=== PATIENT | female | born 1930 | race Caucasian/White ===

== ENCOUNTER 2016-05-12 18:05 | Emergency (ER) | payer MEDICARE, OTHER ==
[2016-05-12] MEDS ORDERED: Acyclovir* 200 MG CAP PO ONE (21:21)
[2016-05-12 21:41] VITALS: BP 134/78
--- NOTE | 2016-06-03 08:43 | UC ---
Demetris Granda Janilya, scribed for Milly Jarrell DO on 05/12/16 at 2059 . Abdominal Pain Female HPI - HPI Summary HPI Summary: An 86 y/o female came in to [facility] presenting w/ a gradual onset of intermittent left side abd pain lasting 10-15 minutes. Pain radiates to left side of her back. The pain is stabbing feeling like "a knife is slicing me". Pt states that the back pain feels like the pain when she had shingles. Icy hot and rubbing did not help the pain. She also took Tylenol 1000 mg without any relief. Pt additionally reports dizziness last week. Pt denies abd pain, CP, SOB, rashes, VARGAS, n/v/d, urinary Sx. PMHx shingles. - History of Current Complaint Chief Complaint: UCAbdominalPain Stated Complaint: PAIN BACK Time Seen by Provider: 05/12/16 20:19 Hx Obtained From: Patient Onset/Duration: Gradual Onset, Lasting Days, Still Present Timing: Intermittent Episodes Lasting: Severity Initially: Moderate Severity Currently: Moderate Location: Discrete At: LUQ Radiates: Yes Radiates to: Back - left side Character: Sharp, Other - stabbing Aggravating Factor(s): Nothing Alleviating Factor(s): Nothing Associated Signs and Symptoms: Positive: Dizzy - a week ago, Back Pain - left sided. Negative: Fever, Cough, Chest Pain, Urinary Symptoms, Nausea, Vomiting, Diarrhea Allergies/Adverse Reactions: Allergies Allergy/AdvReac Type Severity Reaction Status Date / Time No Known Allergies Allergy Verified 05/12/16 19:43 Home Medications: Home Medications Acetaminophen 1,000 mg PO PRN 05/12/16 [History] Seaweed* 05/12/16 [History] PMH/Surg Hx/FS Hx/Imm Hx Previously Healthy: Yes Endocrine History Of: Denies: Diabetes, Thyroid Disease Cardiovascular History Of: Reports: Hypertension Denies: Cardiac Disorders, Myocardial Infarction Respiratory History Of: Denies: COPD, Asthma GI/ History Of: Denies: Ulcer - Surgical History Surgical History: Yes Surgery Procedure, Year, and Place: appy as a child - Family History Known Family History: Positive: Cardiac Disease, Hypertension Family History: CVA - Social History Occupation: Retired Lives: With Family Alcohol Use: Occasionally Alcohol Amount: wine Substance Use Type: None Smoking Status (MU): Former Smoker Type: Cigarettes, Smokeless Tobacco Have You Smoked in the Last Year: No - Immunization History Most Recent Influenza Vaccination: never Most Recent Tetanus Shot: up to date Most Recent Pneumonia Vaccination: never Review of Systems Constitutional: Negative Skin: Negative Eyes: Negative ENT: Negative Respiratory: Negative Cardiovascular: Negative Gastrointestinal: Abdominal Pain Genitourinary: Negative Motor: Negative Neurovascular: Negative Musculoskeletal: Myalgia - back pain Neurological: Other - dizziness that occurred a week ago Psychological: Negative All Other Systems Reviewed And Are Negative: Yes Physical Exam Triage Information Reviewed: Yes Appearance: Well-Appearing, No Pain Distress, Well-Nourished Vital Signs: Initial Vital Signs Temp 97.5 F 05/12/16 19:37 Pulse 91 05/12/16 19:37 Resp 16 05/12/16 19:37 BP 144/70 05/12/16 19:37 Pulse Ox 98 05/12/16 19:37 Vital Signs Reviewed: Yes Eyes: Positive: Conjunctiva Clear. Negative: Discharge ENT: Positive: Hearing grossly normal. Negative: Muffled/hoarse voice Neck exam: Normal Neck: Positive: Supple Respiratory: Positive: Lungs clear, Normal breath sounds, No respiratory distress, No accessory muscle use Cardiovascular: Positive: RRR, No Murmur Abdomen Description: Positive: Other: - Tenderness on flank with a mild papular rash; do not cross the midline.. Negative: Nontender, Soft Musculoskeletal Exam: Normal Neurological: Positive: Alert, Muscle Tone Normal Psychological Exam: Normal Psychological: Positive: Age Appropriate Behavior Skin Exam: Normal Skin: Positive: Other - warm, dry, normal color. area of skin wherein pt is experiencing pain is in a unilateral dermatomal distribution where she has previously had shingles. there are some scattered red papules in that stripe near the spine. pt sister says that the papules are not usually there. Abd Pain Female Course/Dx - Differential Dx/Diagnosis Differential Diagnosis: Urinary Tract Infection, Other - back strain, shingles Provider Diagnoses: shingles Discharge - Discharge Plan Condition: Stable Disposition: HOME Prescriptions: ValACYclovir (*) [Valtrex (*)] 1 gm PO TID #20 tab traMADol TAB* [Ultram*] 50 mg PO Q8H PRN #14 tab MDD 3 TABS PRN Reason: Pain Patient Education Materials: Shingles (ED) Referrals: Jef Lucas MD [Primary Care Provider] - (follow up in 3-5 days ) Additional Instructions: VALTREX: VALTREX is used to treat infections caused by the Herpes family of viruses. It's available as capsules or ointment. VALTREX is most effective if started at the first sign of the viral outbreak. It can decrease the severity and duration of symptoms. However, it doesn't eliminate the virus from the body completely. If you're prone to repeated outbreaks of herpes, you'll continue to have attacks. Take the pills for the full recommended course. Occasionally, mild nausea or headaches may occur. Call the doctor if you develop wheezing, itching, rash, shortness of breath , or lightheadedness. ULTRAM (tramadol hydrochloride): Ultram is an excellent drug for pain relief. It is not a narcotic, but it works in a similar way. Ultram can take up to two hours for full effect. Although not addicting, Ultram is best avoided in patients with a history of drug abuse. Ultram should not be used with alcohol, sleeping pills, or narcotics. If you're prone to seizures, Ultram can make you more likely to have a seizure. Ultram can be hazardous when combined with MAO-inhibitor antidepressants (such as Nardil or Parnate). Be sure your doctor is aware of all medicines you are taking. Persons with severe liver or kidney disease should increase the time between doses of Ultram. Discuss this with your doctor if you're uncertain. Side effects of Ultram can include dizziness, nausea, constipation, sleepiness, and itching. (These side effects are also seen with narcotic pain medicines.) Please call your doctor if you have other disturbing effects. THERE IS SOME EVIDENCE OF URINARY TRACK INFECTION IN YOUR URINE. HOWEVER, DIAGNOSIS OF SHINGLES IS MORE CONSISTENT WITH YOUR HISTORY AND PHYSICAL EXAM. SO, WE ARE SENDING IN THE URINE FOR CULTURE. IF IT REVEALS AN INFECTION, WE WILL CALL YOU AND START YOU ON AN ANTIBIOTIC. IF YOU DEVELOP ANY SYMPTOMS SUCH PAIN WITH URINATION, CHANGES IN COLOR, ODOR OR FREQUENCY, YOU SHOULD BE RE- EVALUATED. IF YOU DEVELOP AND FEVER, NAUSEA, VOMITING, ABDOMINAL PAIN, UNSTEADINESS ON YOUR FEET OR CONFUSION, YOU SHOULD GO TO THE ED IMMEDIATELY. NICE SEEING YOU AGAIN. The documentation as recorded by the Demetris aldridge Janilya accurately reflects the service I personally performed and the decisions made by me, Milly Jarrell DO.
== END 2016-05-12 21:36 | disposition home or self-care (01) ==
LOC: UCEAST 18:05
DX: B02.9 Zoster without complications (principal); Z87.891 Personal history of nicotine dependence
CPT/HCPCS: 81002; 87086; 99212; A9270-GY; G0463

== ENCOUNTER 2016-12-14 09:34 | Emergency (ER) | payer MEDICARE, OTHER ==
[2016-12-14 10:22] VITALS: BP 102/58
--- NOTE | 2016-12-14 10:29 | UC ---
Respiratory Complaint HPI - HPI Summary HPI Summary: Patient presents with a past medical history or HTN. She presents today with 3 day onset complaints of fatigue, malaise, and no energy. He sister states she was in bed all day yesterday. She complains of sore throat, hoarse voice, chest congestion and cough. She denies any sputum production, chest pain, nausea, vomiting, or diarrhea. Denies any recent travel, ill contacts, or recent travel , joint pain or rashes. - History of Current Complaint Hx Obtained From: Patient ?: No Onset/Duration: Gradual Onset, Lasting Days Severity Initially: Mild Severity Currently: Mild Character: Cough: Nonproductive Aggravating Factors: Nothing Alleviating Factors: Nothing Associated Signs And Symptoms: Positive: URI, Hoarseness - Risk Factors Pulmonary Embolism Risk Factors: Negative Cardiac Risk Factors: Negative Pseudomonas Risk Factors: Negative Tuberculosis Risk Factors: Negative <Kaya Walter - Last Filed: 12/14/16 10:23> <Renate Grier - Last Filed: 12/14/16 10:48> - History of Current Complaint Chief Complaint: UCGeneralIllness Stated Complaint: URI Time Seen by Provider: 12/14/16 10:09 - Allergies/Home Medications Allergies/Adverse Reactions: Allergies Allergy/AdvReac Type Severity Reaction Status Date / Time No Known Allergies Allergy Verified 12/14/16 09:42 Home Medications: Home Medications Metoprolol Tartrate [Lopressor] 1 tab PO BEDTIME 12/14/16 [History Confirmed ] Metoprolol Tartrate [Lopressor] 1.5 tab PO DAILY 12/14/16 [History Confirmed ] PMH/Surg Hx/FS Hx/Imm Hx Previously Healthy: Yes Cardiovascular History: Hypertension - Surgical History Surgical History: Yes Surgery Procedure, Year, and Place: appy as a child - Family History Known Family History: Positive: Cardiac Disease, Hypertension Family History: CVA - Social History Occupation: Retired Lives: Alone Alcohol Use: Weekly Alcohol Amount: 1 beer/wine weekly Substance Use Type: None Smoking Status (MU): Current Some Day Smoker Type: Smokeless Tobacco Have You Smoked in the Last Year: No - Immunization History Most Recent Influenza Vaccination: never Most Recent Tetanus Shot: up to date Most Recent Pneumonia Vaccination: never <Kaya Walter - Last Filed: 12/14/16 10:23> Review of Systems Constitutional: Fatigue Skin: Negative Eyes: Negative ENT: Sore Throat Respiratory: Cough All Other Systems Reviewed And Are Negative: Yes <Kaya Walter - Last Filed: 12/14/16 10:23> Physical Exam Triage Information Reviewed: Yes Appearance: Ill-Appearing Vital Signs: Initial Vital Signs Temp 97.6 F 12/14/16 09:35 Pulse 54 12/14/16 09:35 Resp 18 12/14/16 09:35 BP 102/58 12/14/16 09:35 Pulse Ox 98 12/14/16 09:35 Vital Signs Reviewed: Yes Eye Exam: Normal ENT: Positive: Pharyngeal erythema Neck: Positive: Supple Respiratory: Positive: Rhonchi Cardiovascular Exam: Normal Abdominal Exam: Normal Skin Exam: Normal <Kaya Walter - Last Filed: 12/14/16 10:23> Vital Signs: Initial Vital Signs Temp 97.6 F 12/14/16 09:35 Pulse 54 12/14/16 09:35 Resp 18 12/14/16 09:35 BP 102/58 12/14/16 09:35 Pulse Ox 98 12/14/16 09:35 <Renate Grier - Last Filed: 12/14/16 10:48> UC Diagnostic Evaluation - Laboratory O2 Sat by Pulse Oximetry: 98 <Kaya Walter - Last Filed: 12/14/16 10:23> Respiratory Course/Dx - Course Course Of Treatment: Patient presents with complaints of sore throat, chest congestion and generalized fatigue, normal vital signs, and was afebrile. Here her physical exam is consistent with URI, and or viral syndrome. Given her advanced age, and co-mobidities she warrent treatment with antibiotics. [facility] [place] [facility] and I encourged her to have todays findings re-evaluated, and if for any reason her symtpoms worsen, persist she was encouraged to either return to the walk-in or go to the ER. At the time of discharge she was stable and in or apparent distress. I recommend she also increase fluids, and rest. - Differential Dx/Diagnosis Differential Diagnosis/HQI/PQRI: Bronchitis, Laryngitis Provider Diagnoses: URI. Bronchitis. Viral Syndrome. Laryngitis <Kaya Walter - Last Filed: 12/14/16 10:23> Discharge <Kaya Walter - Last Filed: 12/14/16 10:23> <Renate Grier - Last Filed: 12/14/16 10:48> - Discharge Plan Condition: Stable Disposition: HOME Prescriptions: Azithromycin TAB* [Zithromax TAB (Z-DUONG) 250 mg #6 tabs] 250 mg PO DAILY #6 tab Patient Education Materials: Upper Respiratory Infection (ED) Referrals: Jef Lucas MD [Primary Care Provider] - Attestation Statement User Type: Provider - I was available for consult. This patient was seen by the [facility]. The patient was not presented to, seen by, or examined by me. -Yasmine <Renate Grier - Last Filed: 12/14/16 10:48>
== END 2016-12-14 10:34 | disposition home or self-care (01) ==
LOC: UCEAST 09:34
DX: J06.9 Acute upper respiratory infection, unspecified (principal); I10 Essential (primary) hypertension; J40 Bronchitis, not specified as acute or chronic; B34.9 Viral infection, unspecified; J04.0 Acute laryngitis
CPT/HCPCS: 99212; G0463

== ENCOUNTER 2017-03-19 11:44 | Emergency (ER) | payer MEDICARE, OTHER ==
[2017-03-19 12:26] VITALS: BP 101/55
--- NOTE | 2017-03-19 13:05 | UC ---
Respiratory Complaint HPI - HPI Summary HPI Summary: 86 yo female with productive cough and malaise/myalgias x 2 days no cp or sob - History of Current Complaint Chief Complaint: UCRespiratory Stated Complaint: COUGH Time Seen by Provider: 03/19/17 13:00 Hx Obtained From: Patient Onset/Duration: Gradual Onset, Lasting Days Timing: Constant Severity Initially: Moderate Severity Currently: Mild Pain Intensity: 0 Pain Scale Used: 0-10 Numeric Character: Cough: Productive - Allergies/Home Medications Allergies/Adverse Reactions: Allergies Allergy/AdvReac Type Severity Reaction Status Date / Time No Known Allergies Allergy Verified 03/19/17 12:20 PMH/Surg Hx/FS Hx/Imm Hx Previously Healthy: Yes Cardiovascular History: Hypertension Respiratory History: Bronchitis - Surgical History Surgical History: Yes Surgery Procedure, Year, and Place: appy as a child - Family History Known Family History: Positive: Cardiac Disease, Hypertension Family History: CVA - Social History Alcohol Use: Occasionally Alcohol Amount: wine Substance Use Type: None Smoking Status (MU): Former Smoker Type: Cigarettes, Smokeless Tobacco Have You Smoked in the Last Year: No - Immunization History Most Recent Influenza Vaccination: never Most Recent Tetanus Shot: up to date Most Recent Pneumonia Vaccination: never Review of Systems Constitutional: Negative Skin: Negative Eyes: Negative ENT: Negative Respiratory: Cough Cardiovascular: Negative Gastrointestinal: Negative Genitourinary: Negative Motor: Negative Neurovascular: Negative Musculoskeletal: Negative Neurological: Negative Psychological: Negative Is Patient Immunocompromised?: No All Other Systems Reviewed And Are Negative: Yes Physical Exam Triage Information Reviewed: Yes Appearance: Well-Appearing, No Pain Distress, Well-Nourished Vital Signs: Initial Vital Signs Temp 98.6 F 03/19/17 12:22 Pulse 75 03/19/17 12:22 Resp 16 03/19/17 12:22 BP 101/55 03/19/17 12:22 Pulse Ox 99 03/19/17 12:22 Eyes: Positive: Conjunctiva Clear ENT: Positive: Uvula midline. Negative: Nasal congestion, Nasal drainage, Dental tenderness, Sinus tenderness Neck: Positive: Supple, Nontender, No Lymphadenopathy Respiratory: Positive: Normal breath sounds, No respiratory distress, No accessory muscle use, Rhonchi Cardiovascular: Positive: RRR, No Murmur Musculoskeletal: Positive: ROM Intact, No Edema Neurological: Positive: Alert Psychological Exam: Normal Skin Exam: Normal UC Diagnostic Evaluation - Laboratory O2 Sat by Pulse Oximetry: 99 - normal/not hypoxic - Radiology Xray Interpretation: No Acute Changes Radiology Interpretation Completed By: Radiologist - FINDINGS SUGGESTIVE OF YOU[employer] SERVICES SPECIALIST Respiratory Course/Dx - Differential Dx/Diagnosis Provider Diagnoses: acute bronchitis Discharge - Discharge Plan Condition: Stable Disposition: HOME Prescriptions: Amoxicillin PO (*) [Amoxicillin 875 MG (*)] 875 mg PO BID #14 tab Patient Education Materials: Acute Bronchitis (ED) Referrals: No Primary Care Phys,NOPCP [Primary Care Provider] - Additional Instructions: recheck in 3-5 days if not better recheck sooner for new or worsening symptoms rest fluids tylenol
--- NOTE | 2017-03-19 13:25 | RAD ---
INDICATION: Cough and rales. COMPARISON: Comparison is made with prior chest x-ray study from June 07, 2015. TECHNIQUE: Dual-energy PA and lateral views of the chest were obtained. FINDINGS: The heart is within normal limits in size. Mediastinal and hilar contours appear within normal limits. The lungs are clear. There is flattening of the diaphragms suggestive of chronic obstructive pulmonary disease. No pleural effusion is seen. IMPRESSION: FINDINGS SUGGESTIVE OF COPD, NO EVIDENCE FOR ACUTE FINDING.
== END 2017-03-19 13:41 | disposition home or self-care (01) ==
LOC: UCEAST 11:44
DX: J20.9 Acute bronchitis, unspecified (principal); Z87.891 Personal history of nicotine dependence; Z72.89 Other problems related to lifestyle
CPT/HCPCS: 71020; 99212; G0463

== ENCOUNTER 2017-06-16 09:01 | Emergency (ER) | payer MEDICARE, OTHER ==
[2017-06-16 09:15] VITALS: BP 127/66
--- NOTE | 2017-06-16 09:43 | UC ---
General HPI - HPI Summary HPI Summary: This 87-year-old lady comes to the urgent care this morning with her sister. She was awake all night after checking her blood pressure in the evening and found it to be in the 140s over 80s. She denies chest pain shortness of breath. She denies neurological symptoms she does admit to being anxious. She' s seeks medical care at the [facility] . She's compliant with her medication regimen - History of Current Complaint Chief Complaint: UCGeneralIllness Stated Complaint: ELEVATED BLOOD PRESSURE Time Seen by Provider: 06/16/17 09:21 Hx Obtained From: Patient Current Severity: None Pain Intensity: 0 - Allergy/Home Medications Allergies/Adverse Reactions: Allergies Allergy/AdvReac Type Severity Reaction Status Date / Time No Known Allergies Allergy Verified 06/16/17 09:15 PMH/Surg Hx/FS Hx/Imm Hx Previously Healthy: No Cardiovascular History: Hypertension - Surgical History Surgical History: Yes Surgery Procedure, Year, and Place: appy as a child - Family History Known Family History: Positive: Cardiac Disease, Hypertension Family History: CVA - Social History Occupation: Retired Lives: With Family Alcohol Use: Occasionally Alcohol Amount: wine Substance Use Type: None Smoking Status (MU): Former Smoker Type: Cigarettes, Smokeless Tobacco Have You Smoked in the Last Year: No - Immunization History Most Recent Influenza Vaccination: never Most Recent Tetanus Shot: up to date Most Recent Pneumonia Vaccination: never Review of Systems Constitutional: Negative Skin: Negative Eyes: Negative ENT: Negative Respiratory: Negative Cardiovascular: Negative Gastrointestinal: Negative Genitourinary: Negative Motor: Negative Neurovascular: Negative Musculoskeletal: Negative Neurological: Negative Psychological: Other - Patient was concerned about her blood pressure being elevated Is Patient Immunocompromised?: No All Other Systems Reviewed And Are Negative: Yes Physical Exam Triage Information Reviewed: Yes Appearance: Well-Appearing, No Pain Distress, Well-Nourished Vital Signs: Initial Vital Signs Temp 97.9 F 06/16/17 09:10 Pulse 74 06/16/17 09:10 Resp 18 06/16/17 09:10 BP 127/66 06/16/17 09:10 Pulse Ox 99 06/16/17 09:10 Vital Signs Reviewed: Yes Eye Exam: Normal Eyes: Positive: Conjunctiva Clear ENT Exam: Normal ENT: Positive: Normal ENT inspection, Hearing grossly normal, Uvula midline. Negative: TMs normal, TM bulging, Trismus, Muffled voice, Hoarse voice, Sinus tenderness Dental Exam: Normal Neck exam: Normal Neck: Positive: Supple, Nontender Respiratory Exam: Normal Respiratory: Positive: Chest non-tender, Lungs clear, Normal breath sounds, No respiratory distress, No accessory muscle use Cardiovascular Exam: Normal Cardiovascular: Positive: RRR, No Murmur, Pulses Normal, Brisk Capillary Refill Musculoskeletal Exam: Normal Musculoskeletal: Positive: Strength Intact, ROM Intact, No Edema Neurological Exam: Normal Neurological: Positive: Alert, Muscle Tone Normal Psychological Exam: Normal Psychological: Positive: Normal Response To Family Skin Exam: Normal Diagnostics - EKG Cardiac Rate: Bradycardia Cardiac Rhythm: Sinus: Normal Ectopy: None ST Segment: Normal Re-Evaluation - Re-Evaluation First Eval Change: Improved - Patient accepted reassurance that her blood pressure regularly in both her right and left arms within normal limits EKG showed no acute changes sinus rhythm [address] segment changes will follow with primary care Course/Dx - Course Course Of Treatment: Continue medication regimen as prescribed. Report to emergency department for chest pain shortness of breath. Follow with primary care this week - Differential Dx - Multi-Symptom Provider Diagnoses: Self-reported hypertension Discharge - Sign-Out/Discharge Documenting (check all that apply): Discharge - Discharge Plan Condition: Stable Disposition: HOME Patient Education Materials: DASH Eating Plan (ED), Hypertension (ED) Referrals: Cristiane Yang [Nurse Practitioner] - 2 Days - Billing Disposition and Condition Condition: STABLE Disposition: HOME
== END 2017-06-16 10:10 | disposition home or self-care (01) ==
LOC: UCEAST 09:01
DX: I10 Essential (primary) hypertension (principal); R00.1 Bradycardia, unspecified; Z87.891 Personal history of nicotine dependence
CPT/HCPCS: 93005; 99212; G0463

== ENCOUNTER 2018-01-07 12:04 | Emergency (ER) | payer MEDICARE, OTHER ==
[2018-01-07 12:19] VITALS: BP 157/80
--- NOTE | 2018-01-07 12:29 | UC ---
Palpitation/Dysrhythmia HP - HPI Summary HPI Summary: ONSET OF SENSATION OF HEART RACING LAST NIGHT. KEPT HER UP ALL NIGHT. HAD SOME MILD MIDSTERNAL CP WHICH SHE STATES HAS NOW RESOLVED. NO SOB, NAUSEA OR SWEATS. - History of Current Complaint Stated Complaint: RAPID HEARTBEAT Time Seen by Provider: 01/07/18 12:08 Hx Obtained From: Patient Onset/Duration: Sudden Onset, Lasting Hours, Resolved Timing: Constant Severity Initially: Moderate Severity Currently: None Pain Intensity: 0 Pain Scale Used: 0-10 Numeric Character: Fast Aggravating Factor(s): Nothing Alleviating Factor(s): Other - SPONTANEOUS RESOLUTION Associated Signs & Symptoms: Positive: Lightheadedness - Allergy/Home Medications Allergies/Adverse Reactions: Allergies Allergy/AdvReac Type Severity Reaction Status Date / Time No Known Allergies Allergy Verified 01/07/18 12:19 PMH/Surg Hx/FS Hx/Imm Hx Cardiovascular History: Hypertension - Surgical History Surgical History: Yes Surgery Procedure, Year, and Place: appy as a child - Family History Known Family History: Positive: Cardiac Disease, Hypertension Family History: CVA - Social History Alcohol Use: Weekly Alcohol Amount: beer Substance Use Type: None Smoking Status (MU): Former Smoker Type: Cigarettes, Smokeless Tobacco Have You Smoked in the Last Year: No - Immunization History Most Recent Influenza Vaccination: never Most Recent Tetanus Shot: up to date Most Recent Pneumonia Vaccination: never Review of Systems Constitutional: Negative Respiratory: Negative Cardiovascular: Palpitations, Chest Pain Gastrointestinal: Negative All Other Systems Reviewed And Are Negative: Yes Physical Exam Triage Information Reviewed: Yes Appearance: Well-Appearing, No Pain Distress, Well-Nourished Vital Signs: Initial Vital Signs Temp 97.8 F 01/07/18 12:09 Pulse 101 01/07/18 12:09 Resp 18 01/07/18 12:09 BP 157/80 01/07/18 12:09 Pulse Ox 98 01/07/18 12:09 Vital Signs Reviewed: Yes Eyes: Positive: Conjunctiva Clear ENT: Positive: Hearing grossly normal Neck: Positive: Supple Respiratory Exam: Normal Cardiovascular Exam: Normal Abdomen Description: Positive: Soft Musculoskeletal: Positive: No Edema Neurological: Positive: Alert Psychological: Positive: Age Appropriate Behavior Skin: Negative: rashes Diagnostics - EKG Cardiac Rate: NL Cardiac Rhythm: Sinus: Normal Ectopy: None ST Segment: Normal Palpitations Course/Dx - Course Course Of Treatment: PT DECLINES TRANSFER TO ED. ADVISED THAT SHE COULD BE RISKING WORSENING OF HER CONDITION THAT COULD POSE A THREAT TO HER LIFE, HEALTH AND MEDICAL SAFETY. SHE VERBALIZES UNDERSTANDING AND CONTINUES TO DECLINE TRANSFER. WILL CHECK LABS AND REFER TO CARDIOLOGY FOR OUTPT EVAL. - Differential Dx/Diagnosis Provider Diagnoses: PALPITATIONS Discharge - Sign-Out/Discharge Documenting (check all that apply): Patient Departure All imaging exams completed and their final reports reviewed: No Studies - Discharge Plan Condition: Stable Disposition: HOME Patient Education Materials: Heart Palpitations (ED) Referrals: Loy Curiel MD [Medical Doctor] - 1 Week Additional Instructions: YOUR EKG WAS UNREMARKABLE TODAY. WILL CHECK BLOOD COUNT, METABOLIC PANEL AND THYROID. BE SURE TO STAY WELL RESTED AND HYDRATED. AVOID CAFFEINE. FOLLOW-UP WITH CARDIOLOGY WITHIN A WEEK. GO TO ED WITHOUT FAIL IF YOU DEVELOP PERSISTENT PALPITATIONS, SHORTNESS OF BREATH, CHEST PAIN, NAUSEA, SWEATS, DIZZINESS OR ANY OTHER CONCERNING SYMPTOMS. - Billing Disposition and Condition Condition: STABLE Disposition: Home
[2018-01-07 16:23] LABS: ABS Basophils 0 10^3/ul (0-0.2); ABS Eosinophils 0 10^3/ul (0-0.6); ABS Lymphocytes 1.3 10^3/ul (1.0-4.8); ABS Monocytes 0.4 10^3/ul (0-0.8); ABS Neutrophils 5.3 10^3/ul (1.5-7.7); ABS Nucleated RBC 0 10^3/ul; Eosinophil % 0.4 % (0-6); Hematocrit 41 % (35-47); Hemoglobin 14.2 g/dl (12.0-16.0); Lymphocyte % 18.3 % (25-47); Mean Corpuscular HGB Conc 35 g/dl (31-36); Mean Corpuscular Hemoglobin 29 pg (27-31); Mean Corpuscular Volume 85 fL (80-97); Nucleated Red Blood Cells % 0.2; Platelet Count 263 10^3/ul (150-450); Red Blood Count 4.85 10^6/ul (4.00-5.40); Red Cell Distribution Width 14 % (10.5-15); White Blood Count 7.1 10^3/ul (3.5-10.8)
[2018-01-07 16:57] LABS: EGFR Non-African American 74.6 (>60)
== END 2018-01-07 12:59 | disposition home or self-care (01) ==
LOC: UCEAST 12:04
DX: R00.2 Palpitations (principal); R42 Dizziness and giddiness; Z87.891 Personal history of nicotine dependence
CPT/HCPCS: 36415; 80053; 84443; 85025; 93005; 99211; G0463

== ENCOUNTER 2018-03-09 12:04 | Emergency (ER) | payer MEDICARE, OTHER ==
--- NOTE | 2018-03-09 13:09 | UC ---
Back Pain HPI - HPI Summary HPI Summary: Patient is 87 year old woman , who present today to the urgent care with left low back pain that started today. She reports that she went out to breakfast sat down in the restauraunt and she turned and she got tremendous pain and noticed it again when she stood up to leave. Pain is localized to left lower back, she points to left SI joint area. Overall she feels that it is improved. She has not taken any medicines so far. Denies any radicular symptoms, numbness , tingling , incontinence, saddle anesthesia , motor or sensory disturbance. - History of Current Complaint Chief Complaint: UCBackPain Stated Complaint: LOWER BACK PAIN Time Seen by Provider: 03/09/18 13:01 Hx Obtained From: Patient Pain Intensity: 4 - Allergies/Home Medications Allergies/Adverse Reactions: Allergies Allergy/AdvReac Type Severity Reaction Status Date / Time No Known Allergies Allergy Verified 03/09/18 12:38 PMH/Surg Hx/FS Hx/Imm Hx - Additional Past Medical History Additional PMH: Hypertension Previously Healthy: Yes - Surgical History Surgical History: Yes Surgery Procedure, Year, and Place: [place] as a child - Family History Known Family History: Positive: Cardiac Disease, Hypertension Family History: CVA - Social History Alcohol Use: Weekly Alcohol Amount: beer Substance Use Type: None Smoking Status (MU): Former Smoker Type: Cigarettes, Smokeless Tobacco Have You Smoked in the Last Year: No - Immunization History Most Recent Influenza Vaccination: never Most Recent Tetanus Shot: up to date Most Recent Pneumonia Vaccination: never Review of Systems All Other Systems Reviewed And Are Negative: Yes Constitutional: Positive: Negative Skin: Positive: Negative Eyes: Positive: Negative ENT: Positive: Negative Respiratory: Positive: Negative Cardiovascular: Positive: Negative Gastrointestinal: Positive: Negative Genitourinary: Positive: Negative Motor: Positive: Negative Neurovascular: Positive: Negative Musculoskeletal: Positive: Decreased ROM, Myalgia, Other: - Low back pain Neurological: Positive: Negative Psychological: Positive: Negative Is Patient Immunocompromised?: No Physical Exam - Summary Physical Exam Summary: Physical Exam: Const: Appears well. No signs of apparent distress present. Alert and oriented x 3. Head/Face: Atraumatic, normocephalic on inspection. Eyes: EOMI and PERRLA in both eyes. Conjunctivae clear. No discharge noted ENT: Hearing normal, TM normal appearing bilaterally . Respiratory: Respirations are unlabored. Lungs clear to auscultation bilaterally, no wheezing , rhonchi or rales noted . CVS: Regular rate and Rhythm, S1S2 normal , no murmurs identified. Abdomen : Soft non tender , nondistended , Bowel sounds present . No guarding , rebound tenderness or rigidity noted. Hip/ Spine: Musculo: Walks with a likely antalgic gait Spine: No loss of the normal lumbar lordosis or step-off. No midline tenderness noted. There is tenderness to palpation in the left lower lumbar paraspinal area and the left SI joint. Stability: No obvious instability. Strength: Flexion, extension, left rotation, left lateral bending, right lateral bending and right rotation strength is intact. ROM: Slightly limited and painful range of motion Special Tests: Straight leg raise is negative bilaterally. Hip: Insp/Palp: Normal to inspection and palpation. Strength: 5/5 bilaterally. Normal muscle tone bilaterally. ROM: Bilateral hips: full ROM Skin: No scars, rashes, lesions or ecchymosis. Neuro: Sensation intact to light touch. Motor and sensory intact. Reflexes: Left DTR's are intact. Right DTR's are intact. Toes downgoing. Coordination normal. Distal pulses intact. Triage Information Reviewed: Yes Vital Signs: Initial Vital Signs Temp 97.9 F 03/09/18 12:31 Pulse 66 03/09/18 12:31 Resp 18 03/09/18 12:31 BP 122/62 03/09/18 12:31 Pulse Ox 99 03/09/18 12:31 Vital Signs Reviewed: Yes Back Pain Course/Dx - Course Course Of Treatment: During the visit today, we discussed the findings and further plan. Her symptoms are consistent with left low lumbar strain/SI joint dysfunction. Plan for conservative treatment and follow-up with the primary care doctor. She sees her physician at [facility] and does not have a local primary care physician. I will put in the physician referral. Patient expressed understanding . - Differential Dx/Diagnosis Provider Diagnosis: Low back strain, Disorder of SI (sacroiliac) joint Discharge - Sign-Out/Discharge Documenting (check all that apply): Patient Departure All imaging exams completed and their final reports reviewed: No Studies - Discharge Plan Condition: Stable Disposition: HOME Patient Education Materials: Low Back Strain (ED), Lower Back Exercises (ED) Referrals: No Primary Care Phys,NOPCP [Primary Care Provider] - [facility] REFERRAL [Outside] - 1 Week Additional Instructions: Please Tylenol 500 mg- 2 tablets twice daily as needed for pain You can use warm compresses or ice, 15 minutes at a time, 3-4 times a day. Start PT. Follow up with your primary care doctor in 1 week Return to Urgent care / ER if symptoms get worse. - Billing Disposition and Condition Condition: STABLE Disposition: Home
[2018-03-09] MEDS ORDERED: Acetaminophen TAB* 325 MG PO ONE (13:28)
[2018-03-10 00:32] VITALS: BP 122/62
== END 2018-03-09 13:40 | disposition home or self-care (01) ==
LOC: UCEAST 12:04
DX: S39.012A Strain of muscle, fascia and tendon of lower back, initial encounter (principal); M53.3 Sacrococcygeal disorders, not elsewhere classified; I10 Essential (primary) hypertension; X58.XXXA Exposure to other specified factors, initial encounter; Y92.9 Unspecified place or not applicable
CPT/HCPCS: 99212; A9270-GY; G0463

== ENCOUNTER 2018-03-16 15:06 | Emergency (ER) | payer MEDICARE, OTHER ==
[2018-03-16 15:17] VITALS: BP 157/71
--- NOTE | 2018-03-16 15:43 | UC ---
Hip/Pelvis Pain - HPI Summary HPI Summary: SUDDEN ONSET OF SHARP STABBING PAIN IN THE LEFT LOW BACK TODAY WHILE WALKING IN HER HOUSE. PAIN WAS SO SEVERE THAT IT TOOK HER TO THE FLOOR. WAS UNABLE TO GET UP ON HER OWN. AFTER ABOUT 15 MINUTES HER NEPHEW WAS ABLE TO ASSIST HER INTO A CHAIR AT WHICH POINT THE PAIN SUBSIDED. PATIENT TOOK 2 ADVIL AND NOW FEELS OKAY. HAS ONLY MILD RESIDUAL "SORENESS". HAD THIS SAME PAIN ABOUT ONE WEEK AGO AND WAS SEEN HERE AT THE AND DIAGNOSED WITH SI JOINT DYSFUNCTION. WAS ADVISED TO TAKE TYLENOL AND FOLLOW-UP WITH HER PCP. WAS DOING WELL UNTIL TODAY. PATIENT DENIES ANY NUMBNESS, TINGLING, SADDLE ANESTHESIA. NO TRAUMA. - History Of Current Complaint Chief Complaint: UCBackPain Stated Complaint: HIP PAIN Time Seen by Provider: 03/16/18 15:20 Hx Obtained From: Patient Onset/Duration: Sudden Onset, Lasting Minutes, Resolved Severity Initially: Moderate Severity Currently: Mild Pain Intensity: 6 Pain Scale Used: 0-10 Numeric Location: Discrete At: - LEFT SI JOINT Character Of Pain: Sharp Aggravating Factor(s): Nothing Alleviating Factor(s): Rest Associated Signs And Symptoms: Negative: Swelling, Redness - Allergies/Home Medications Allergies/Adverse Reactions: Allergies Allergy/AdvReac Type Severity Reaction Status Date / Time No Known Allergies Allergy Verified 03/16/18 15:18 PMH/Surg Hx/FS Hx/Imm Hx Cardiovascular History: Hypertension - Surgical History Surgical History: Yes Surgery Procedure, Year, and Place: [place] as a child - Family History Known Family History: Positive: Cardiac Disease, Hypertension Family History: CVA - Social History Alcohol Use: Occasionally Alcohol Amount: beer Substance Use Type: None Smoking Status (MU): Former Smoker Type: Cigarettes, Smokeless Tobacco Have You Smoked in the Last Year: No - Immunization History Most Recent Influenza Vaccination: never Most Recent Tetanus Shot: up to date Most Recent Pneumonia Vaccination: never Review of Systems All Other Systems Reviewed And Are Negative: Yes Constitutional: Positive: Negative Skin: Positive: Negative Respiratory: Positive: Negative Cardiovascular: Positive: Negative Gastrointestinal: Positive: Negative Musculoskeletal: Positive: Arthralgia Neurological: Positive: Negative Physical Exam Triage Information Reviewed: Yes Appearance: Well-Appearing, No Pain Distress, Well-Nourished Vital Signs: Initial Vital Signs Temp 98.6 F 03/16/18 15:14 Pulse 60 12/23/18 15:14 Resp 16 03/16/18 15:14 BP 157/71 03/16/18 15:14 Pulse Ox 100 03/16/18 15:14 Vital Signs Reviewed: Yes Eyes: Positive: Conjunctiva Clear ENT: Positive: Hearing grossly normal Neck: Positive: Supple Respiratory: Positive: No respiratory distress, No accessory muscle use Cardiovascular: Positive: Pulses Normal Abdomen Description: Positive: Soft Musculoskeletal: Positive: ROM Intact, No Edema, Other: - TTP RIGHT SI JOINT Neurological: Positive: Alert Psychological: Positive: Age Appropriate Behavior Skin: Negative: Rashes Diagnostics - Radiology SI JOINT XRAYS Radiology Interpretation Completed By: Radiologist Summary of Radiographic Findings: UNREMARKABLE Hip Injury Course/Dx - Differential Dx/Diagnosis Provider Diagnosis: SI (sacroiliac) joint dysfunction Discharge - Sign-Out/Discharge Documenting (check all that apply): Patient Departure All imaging exams completed and their final reports reviewed: Yes - Discharge Plan Condition: Stable Disposition: HOME Patient Education Materials: Sacroiliitis (ED) Referrals: Neo Baker MD [Medical Doctor] - If Needed Additional Instructions: XRAYS OF YOUR SI JOINTS TODAY UNREMARKABLE. YOUR SYMPTOMS ARE CONSISTENT WITH SI JOINT DYSFUNCTION. CONSIDER PHYSICAL THERAPY. REFERRAL PROVIDED TODAY. FOLLOW -UP WITH YOUR PCP OR ORTHO. YOU MAY ALSO CONTINUE WITH YOUR RAD TECH. TAKE 400MG IBUPROFEN EVERY 6-8 HOURS NEEDED FOR PAIN. GO TO THE ED WITHOUT FAIL IF YOU DEVELOP WORSENING PAIN, NUMBNESS/TINGLING, LEG SWELLING OR ANY OTHER CONCERNING SYMPTOMS. - Billing Disposition and Condition Condition: STABLE Disposition: Home
== END 2018-03-16 17:03 | disposition home or self-care (01) ==
LOC: UCEAST 15:06
DX: M53.3 Sacrococcygeal disorders, not elsewhere classified (principal); I10 Essential (primary) hypertension; Z87.891 Personal history of nicotine dependence
CPT/HCPCS: 72202; 99211; G0463

== ENCOUNTER 2018-08-09 13:28 | Emergency (ER) | payer MEDICARE, OTHER ==
[2018-08-09 13:40] VITALS: BP 127/72
--- NOTE | 2018-08-09 13:48 | UC ---
Throat Pain/Nasal Antelmo HPI - HPI Summary HPI Summary: 2 days of sinus congestion and cough no fevers, chills, nausea, vomiting or SOB , no SAGE, no orthopnea- - History of Current Complaint Chief Complaint: UCGeneralIllness Stated Complaint: COLD SYMPTOMS Time Seen by Provider: 08/09/18 13:37 Hx Obtained From: Patient ?: No Onset/Duration: Sudden Onset, Lasting Days - 2, Still Present Pain Intensity: 0 Pain Scale Used: 0-10 Numeric Cough: Nonproductive Associated Signs & Symptoms: Positive: Nasal Discharge - Allergies/Home Medications Allergies/Adverse Reactions: Allergies Allergy/AdvReac Type Severity Reaction Status Date / Time No Known Allergies Allergy Verified 08/09/18 13:36 PMH/Surg Hx/FS Hx/Imm Hx Previously Healthy: No Cardiovascular History: Hypertension - Surgical History Surgical History: Yes Surgery Procedure, Year, and Place: [place] as a child - Family History Known Family History: Positive: Cardiac Disease, Hypertension Family History: CVA - Social History Occupation: Retired Lives: With Family Alcohol Use: Weekly Alcohol Amount: beer Substance Use Type: None Smoking Status (MU): Former Smoker Type: Cigarettes, Smokeless Tobacco Have You Smoked in the Last Year: No - Immunization History Most Recent Influenza Vaccination: never Most Recent Tetanus Shot: up to date Most Recent Pneumonia Vaccination: never Review of Systems All Other Systems Reviewed And Are Negative: Yes Constitutional: Positive: Fatigue Skin: Positive: Negative Eyes: Positive: Negative ENT: Positive: Nasal Discharge, Sinus Congestion Respiratory: Positive: Cough Cardiovascular: Positive: Negative Gastrointestinal: Positive: Negative Genitourinary: Positive: Negative Motor: Positive: Negative Neurovascular: Positive: Negative Musculoskeletal: Positive: Negative Neurological: Positive: Negative Psychological: Positive: Negative Is Patient Immunocompromised?: No Physical Exam Triage Information Reviewed: Yes Appearance: Well-Appearing, No Pain Distress, Well-Nourished Vital Signs: Initial Vital Signs Temp 97.7 F 08/09/18 13:37 Pulse 66 08/09/18 13:37 Resp 18 08/09/18 13:37 BP 127/72 08/09/18 13:37 Pulse Ox 98 08/09/18 13:37 Vital Signs Reviewed: Yes Eye Exam: Normal Eyes: Positive: Conjunctiva Clear ENT Exam: Normal ENT: Positive: Normal ENT inspection, Hearing grossly normal, Pharynx normal, Nasal congestion, TMs normal, Uvula midline. Negative: Tonsillar swelling, Tonsillar exudate, Trismus, Muffled voice, Hoarse voice, Dental tenderness, Sinus tenderness Dental Exam: Normal Neck exam: Normal Neck: Positive: Supple, Nontender, No Lymphadenopathy Respiratory Exam: Normal Respiratory: Positive: Chest non-tender, Lungs clear, Normal breath sounds, No respiratory distress, No accessory muscle use Cardiovascular Exam: Normal Cardiovascular: Positive: RRR, No Murmur, Pulses Normal, Brisk Capillary Refill Musculoskeletal Exam: Normal Musculoskeletal: Positive: Strength Intact, ROM Intact, No Edema Neurological Exam: Normal Neurological: Positive: Alert, Muscle Tone Normal Psychological Exam: Normal Skin Exam: Normal Throat Pain/Nasal Course/Dx - Course Course Of Treatment: will treat symptomatically and add antibiodic later in week if symptoms worsen , patient develops fever--will go to ed for SOB chest pain, SAGE, opthopnea, follow with pcp prn - Differential Dx/Diagnosis Provider Diagnosis: URI (upper respiratory infection), Nasal congestion Discharge - Sign-Out/Discharge Documenting (check all that apply): Patient Departure All imaging exams completed and their final reports reviewed: No Studies - Discharge Plan Condition: Stable Disposition: HOME Prescriptions: Azithromycin TAB* [Zithromax TAB (Z-DUONG) 250 mg #6 tabs] 2 tab PO .TODAY, THEN 1 DAILY #1 duong Benzonatate CAP* [Tessalon 100 MG CAP*] 100 mg PO TID PRN #30 cap PRN Reason: Cough Fluticasone NASAL SPRAY 50MCG* [Flonase NASAL SPRAY 50MCG*] 2 spray BOTH NARES DAILY #1 btl Patient Education Materials: Upper Respiratory Infection (ED), Allergic Rhinitis (DC) Referrals: [facility] [Outside] - 5 Days - Billing Disposition and Condition Condition: STABLE Disposition: Home
== END 2018-08-09 14:00 | disposition home or self-care (01) ==
LOC: UCEAST 13:28
DX: J06.9 Acute upper respiratory infection, unspecified (principal); R09.81 Nasal congestion; Z87.891 Personal history of nicotine dependence
CPT/HCPCS: 99212; G0463